=== PATIENT | female | born 1960 | race Caucasian/White ===

== ENCOUNTER → 2019-12-28 | Outpatient (CLI) | payer OTHER | LOC: CAT 14:09 | DX: Z13.6 Encounter for screening for cardiovascular disorders (principal); I25.10 Atherosclerotic heart disease of native coronary artery without angina pectoris; E78.00 Pure hypercholesterolemia, unspecified ==

== ENCOUNTER → 2020-10-11 | Outpatient (CLI) | payer OTHER | LOC: CAT 13:52 | PROVIDERS: ATTEND Family Medicine | DX: Z13.6 Encounter for screening for cardiovascular disorders (principal); I25.10 Atherosclerotic heart disease of native coronary artery without angina pectoris; E78.00 Pure hypercholesterolemia, unspecified ==

== ENCOUNTER → 2021-04-10 | Outpatient (CLI) | payer OTHER | LOC: CAT 11:53 | PROVIDERS: ATTEND Family Medicine | DX: Z13.6 Encounter for screening for cardiovascular disorders (principal); I25.10 Atherosclerotic heart disease of native coronary artery without angina pectoris; E78.00 Pure hypercholesterolemia, unspecified ==